=== PATIENT | female | born 1950 | race Hispanic/Latino ===

== ENCOUNTER 2018-02-25 17:15 | Emergency (ER) | payer OTHER, MEDICARE ==
[~2018-02-25] VITALS: Ht 160 cm; Wt 79.8 kg
--- NOTE | 2018-02-25 17:40 | NUR ---
TO CT TAKEN TO CT AMBULATORY, STEADY GAIT NOTED
[2018-02-25] MEDS ORDERED: TYLENOL PO ONE (17:45)
--- NOTE | 2018-02-25 18:00 | NUR ---
BACK FROM CT AMBULATORY, STEADY GAIT RECONNECTED TO BEDSIDE MONITOR.
[2018-02-25 18:16] LABS: HEMOGLOBIN 13.2 g/dL (12.0-15.0); MEAN CELL HGB 26.5 pg (26-34); MEAN CELL HGB CONCENTRATION 32.2 g/dL (33-37); MEAN CORP VOLUME 82.3 fL (78-100); RED CELL DISTRIBUTION WIDTH 15.6 % (11.5-14.5); WHITE BLOOD CELL 9.1 10^3/uL (4.5-11.0)
[2018-02-25 18:17] LABS: BASOPHIL % 0.4 % (0.0-0.2); EOSINOPHIL # 0.2 10^3/uL (0.0-0.2); EOSINOPHIL % 1.9 % (0.0-5.0); LYMPHOCYTES # 1.5 10^3/uL (1.0-4.8); LYMPHOCYTES % 16.2 % (24.0-44.0); MONOCYTES # 0.5 10^3/uL (0.3-0.8); MONOCYTES % 5.7 % (5.0-12.0); NEUTROPHIL # 6.9 10^3/uL (1.8-7.7); NEUTROPHILS % 75.6 % (41.0-85.0)
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
--- NOTE | 2018-02-25 18:20 | PCM.EKG ---
[facility] Test Date: 2018-02-25 Test Time: 17:55:28 Pat Name: JV العراقي Department: Room: Gender: F Senior Payroll Specialist: LISET : 1950 Requested By: MARIUM SARAH Order Number: [id number] Reading MD: Marium SARAH Measurements Intervals [place] Rate: 66 P: 58 [place]: 152 QRS: 26 QRSD: 84 T: 50 QT: 406 QTc: 425 Interpretive Statements Normal sinus rhythm Normal ECG No previous ECG available for comparison Electronically Signed On 02-26-2018 12:33:04 CDT by Marium SARAH Please click the below link to view image of tracing.
[2018-02-25 18:22] LABS: CARBON DIOXIDE 27.2 mmol/L (20.0-32); GLUCOSE 101 mg/dL (70-110)
[2018-02-25 18:23] LABS: ALANINE AMINOTRANSFERASE(ML) 88 U/L (12-78); ALKALINE PHOSPHATASE 80 U/L (50-136); ASPARTATE AMINO TRANSFERASE 78 U/L (0-35); CALCIUM 9.2 mg/dL (8.4-10.5)
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
[2018-02-25 18:37] VITALS: BP 151/85
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
--- NOTE | 2018-02-25 18:45 | NUR ---
CT WAS DONE WITHOUT CONTRAST,DR SARAH WANTS REPEAT WITH IV CONTRAST FOR ABDOMEN/PELVIS SMITH NOTIFIED
--- NOTE | 2018-02-25 19:10 | NUR ---
TO CT AMBULATORY STEADY GAIT NOTED
[2018-02-25 19:15] VITALS: BP 149/81
--- NOTE | 2018-02-25 19:48 | DIREP ---
PROCEDURE:CT CHEST ABDOMEN PELVIS W/CONTRAST COMPARISON:[facility], CT, CT CHEST ABDOMEN PELVIS W/O, 02/25/2018, 06:13 PM. INDICATIONS:Pain TECHNIQUE:After obtaining the patient's consent, CT images were created with non-ionic intravenous contrast material. FINDINGS: LUNGS:No infiltrate or pulmonary nodule. Mild atelectasis in the lung bases. PLEURA:No pleural fluid or pneumothorax. CARDIAC:No cardiomegaly or pericardial fluid. MEDIASTINUM/VANITA:No mass or adenopathy. AORTA:No aneurysm. CHEST WALL:No mass or axillary adenopathy. LIVER: The 1.3 cm low-density lesion is consistent with a cyst, the smaller 1 cm lesion may represent a cyst or hemangioma. Portal and hepatic veins are patent. Variant drainage of segment 6. BILIARY: Gallbladder is unremarkable, no intra or extrahepatic biliary dilation. PANCREAS: Unremarkable. SPLEEN: Normal, nonenlarged. KIDNEYS: No renal mass. No hydronephrosis or collecting system stone identified. ADRENALS: Normal. AORTA/VASCULAR: Normal. No aneurysm or dissection. RETROPERITONEUM: No adenopathy or mass. BOWEL/MESENTERY: No evidence of obstruction. Appendix normal. ABDOMINAL WALL: Nonspecific edematous changes in the anterior abdominal wall. No mass or hernia. URINARY BLADDER: Inherently limited evaluation of the wall; unremarkable for level of distension. PELVIS: Hysterectomy, no adnexal mass. No adenopathy. BONES: Mild degenerative changes with mild levoscoliosis. OTHER: No free air or fluid. CONCLUSION: 1. No change in the chest, abdomen or pelvis. Mild atelectasis in the lung bases, increased density suggesting edema in the anterior abdominal wall inferiorly. No abscess. Dictated by: Laura Ambrosio MD on 02/25/2018 at 07:37 PM
[2018-02-25 20:08] VITALS: BP 155/73
[2018-02-25 20:19] VITALS: BP 155/73
== END 2018-02-25 20:17 | disposition home or self-care (01) ==
LOC: ER 17:15
DX: S20.211A Contusion of right front wall of thorax, initial encounter (principal); S30.1XXA Contusion of abdominal wall, initial encounter; S40.011A Contusion of right shoulder, initial encounter; V43.62XA Car passenger injured in collision with other type car in traffic accident, initial encounter; Y93.89 Activity, other specified; Y92.488 Other paved roadways as the place of occurrence of the external cause; Y99.8 Other external cause status
CPT/HCPCS: 36415; 70450; 71250; 71260; 72125; 73030; 73070; 74176; 74177; 80053; 83880; 84484; 85025; 93005; 99285; A9150; Q9965